=== PATIENT | male | born 1965 | race Caucasian/White ===

== ENCOUNTER 2023-06-01 07:02 | Day surgery (SDC) | payer OTHER, SELFPAY ==
--- NOTE | 2023-06-01 | PATH_ITS ---
[facility] Accession Number: [id number] No. of containers..02 Tissue . 01 Material submitted: . PART A: sigmoid colon - SIGMOID POLYP PART B: rectum - RECTAL POLYPS . 01 Diagnosis: A. Sigmoid Colon Polyp, Biopsy: Tubular adenoma. . B. Rectal Polyps, Biopsy: Hyperplastic polyp. MRV 06/07/2023 1541 Local . 01 Electronically signed: . July Turcios MD, Pathologist NPI- [id number] . 01 Gross description: . Part A: SIGMOID POLYP: Received in formalin is multiple fragment(s) of [place], soft tissue measuring 2.0 x 1.5 x 0.2 cm in aggregate submitted entirely in 1 cassette(s) Part B: RECTAL POLYPS: Received in formalin is multiple fragment(s) of [place], soft tissue measuring 1.5 x 1.0 x 0.2 cm in aggregate submitted entirely in 1 cassette(s) /AAY 06/02/2023 0621 Local . 01 Pathologist provided ICD-10: D12.5, D12.8 . 01 CPT . 887517, 963616 Specimen Comment: A courtesy copy of this report has been sent to [phone] Performed at: 01 [facility] [address] [place] [address], [place], [place] [id number] MD Adrian Waller MD Phone: [phone]
[2023-06-01 07:15] VITALS: BP 139/84; PULSE 84; RESP 16; TEMP 37.2; O2SAT 99; BMI 25.6
[2023-06-01] MEDS: LACTATED RINGERS 1,000 ML 150 ML IV (07:33)
--- NOTE | 2023-06-01 07:52 | PM.HP.1 ---
History of Present Illness History of Present Illness Date Patient Seen: 06/01/23 Time Patient Seen: 07:52 Chief complaint: Screening Colonoscopy Narrative: Getachew is a 58 year old man who had a colonoscopy about 5 years ago with findings of a small sigmoid polyp. He has a brother who of colon cancer at age 70. [facility] Social History household members: spouse Smoking Status: Never smoker alcohol intake: current Meds Home Medications and Allergies Home Medications Medication Instructions Recorded Confirmed Type sodium,potassium,mag sulfates 17.5 See Rx Instructions PO .COMPLEX 05/09/23 06/01/23 Rx gram-3.13 gram-1.6 gram oral soln #354 mL (Suprep Bowel Prep Kit) Allergies Allergy/AdvReac Type Severity Reaction Status Date / Time No Known Drug Allergies Allergy Verified 06/01/23 07:34 Exam Vital Signs (past 8 hours): - 06/01/23 07:15 Temperature 99 F Pulse Rate 84 Respiratory Rate 16 Blood Pressure 139/84 Pulse Oximetry 99 Oxygen Delivery Method Room Air Oxygen Delivery Method Room Air Const General: healthy appearing Resp Effort & Inspection: normal respiratory effort Assessment & Plan Assessment and plan (1) Family history of colon cancer: Status: Acute (2) History of colon polyps: Status: Acute Plan We reviewed the risks, benefits and rationale of colonoscopy and he would like to proceed.
--- NOTE | 2023-06-01 08:55 | PM.OP.COLON ---
Operative Date/Time/Diagnoses Date of procedure: 06/01/23 Time of procedure: 08:55 Pre-op diagnosis: Personal history of colon polyps and family history of colon cancer Post-op diagnosis: same Procedure & Clinicians Study performed: Colonoscopy Same procedure as scheduled: Yes Surgeon: Arash Gonzalez Procedure Notes Procedure in detail: Surgeon: Arash Gonzalez MD Anesthesia: April Joseph DO Procedure: The patient was brought to the endoscopy suite, placed in left lateral decubitus position. The patient was connected to monitoring devices. A time-out was performed. Sedation was administered. Once the patient was adequately sedated, a digital rectal exam was performed and was normal. The scope was then inserted and advanced to the cecum where the appendiceal orifice was identified and photographed. The scope was then slowly withdrawn over greater than 6 minutes. The mucosa was thoroughly inspected. There was a 3 mm polyp in the proximal sigmoid colon removed with a cold snare. There were 3 5 mm polyps in the mid rectum removed with cold snare and sent together. The scope was retroflexed in the rectum. No other abnormalities were found. The scope was straightened and removed. The patient was awakened and brought to recovery. Scope withdrawal time: 13 minutes Sedation time: 17 minutes EBL: 5 mL Findings: A 3 mm polyp in the sigmoid colon and 3 5 mm polyps in the rectum Post-procedure Disposition: PACU
[2023-06-01 08:57] VITALS: BP 101/54; PULSE 68; RESP 15; TEMP 37.2; O2SAT 97
[2023-06-01 09:02] VITALS: BP 111/70; PULSE 87; RESP 17; O2SAT 100
[2023-06-01 09:07] VITALS: BP 129/74; PULSE 69; RESP 18; TEMP 37.2; O2SAT 100
== END 2023-06-01 09:22 | disposition home or self-care (01) ==
PROVIDERS: Surgery; Referring Provider Surgery; Visit Provider Surgery
PROC: 0DJD8ZZ Inspection of Lower Intestinal Tract, Via Natural or Artificial Opening Endoscopic (ICD-10-PCS; CPT 45378; principal; 2023-06-01 08:15)
DX: Z12.11 Encounter for screening for malignant neoplasm of colon (principal); Z86.010 Personal history of colon polyps; Z80.0 Family history of malignant neoplasm of digestive organs; D12.5 Benign neoplasm of sigmoid colon; K62.1 Rectal polyp
CPT/HCPCS: 45385; J2704

== ENCOUNTER → 2024-10-03 16:51 | Outpatient (CLI) | payer OTHER, SELFPAY ==
--- NOTE | 2024-10-03 16:53 | DI.RAD.S_ITS ---
PROCEDURE: XR CHEST 2V INDICATIONS: cough TECHNIQUE: 2 views of the chest were acquired. COMPARISON: None. FINDINGS: Surgical changes and devices: None. Lungs and pleura: No acute consolidations. Blunting of the left posterior costophrenic sulcus, but no other evidence of pleural effusion or pneumothorax. Mediastinum: Mediastinal contours are normal. Heart size is normal. Bones and chest wall: No suspicious bony abnormalities. Soft tissues appear unremarkable. IMPRESSION: No airspace opacities. Blunting of the left costophrenic sulcus may be due to trace pleural fluid or chronic pleural scarring. Correlate clinically. Dictated by: Ivelisse Patel M.D. on 10/04/2024 at 13:34 Approved by: Ivelisse Patel M.D. on 10/04/2024 at 13:35
== END ==
PROVIDERS: PCP Family Medicine; Referring Provider Family Medicine; Visit Provider Family Medicine
DX: R05.9 Cough, unspecified (principal)
CPT/HCPCS: 71046

== ENCOUNTER → 2024-10-04 08:22 | Outpatient (CLI) | payer OTHER, SELFPAY ==
[2024-10-04 09:00] LABS: Add Manual Diff / Slide Review NO; Basophils Absolute Auto 100 /uL (0-100); Basophils Percent Auto 0.7 % (0-2); Eosinophils Absolute Auto 300 /uL (0-450); Eosinophils Percent Auto 3.8 % (2-4); Hematocrit 47.5 % (41-53); Hemoglobin 16.1 g/dL (13.5-17.5); Lymphocytes Absolute Auto 1900 /uL (1100-4500); Lymphocytes Percent Auto 25.2 % (25-40); Mean Corpuscular Hemoglobin 30.3 PG (26-34); Mean Corpuscular Volume 89.1 fL (80-100); Monocytes Absolute Auto 700 /uL (0-900); Monocytes Percent Auto 9.6 % (3-14); Neutrophils Absolute Auto 4600 /uL (1500-7000); Neutrophils Percent Auto 60.7 % (50-75); Platelet Count 256 X10^3/uL (150-400); Red Blood Cell Count 5.33 X10^6/uL (4.5-5.9); Red Cell Distribution Width 13.3 % (11.6-14.8); White Blood Cell Count 7.5 X10^3/uL (4.5-11.0)
[2024-10-04 09:20] LABS: HEMOLYSIS < 15 (0-50); Iron 137 ug/dL (49-181)
[2024-10-04 09:22] LABS: Alanine Aminotransferase 25 IU/L (<50); Albumin 4.3 g/dL (3.5-5.0); Albumin Globulin Ratio 1.6 (1.0-2.8); Alkaline Phosphatase 80 U/L (38-126); Aspartate Aminotransferase 27 IU/L (17-59); BUN Creatinine Ratio 16.5 (6-22); Bilirubin Total 1.3 mg/dL (0.2-1.3); Blood Urea Nitrogen 15 mg/dL (9-20); Calcium 9.2 mg/dL (8.4-10.2); Carbon Dioxide 27 mmol/L (22-32); Chloride 105 mmol/L (98-107); Cholesterol 205 mg/dL (140-199); Estimated Glomerular Filt Rate > 60 mL/min (>60); Globulin 2.7 g/dL (1.7-4.1); Glucose 94 mg/dL (80-110); HDL Cholesterol 42 mg/dL (40-60); HEMOLYSIS < 15 (0-50); Magnesium 2.2 mg/dL (1.6-2.3); Potassium 4.4 mmol/L (3.4-5.1); Sodium 139 mmol/L (137-145); Triglycerides 149 mg/dL (35-150)
[2024-10-04 09:23] LABS: LDL Cholesterol Calculated 133 mg/dL (<100)
[2024-10-04 09:32] LABS: Percent Iron Saturation 50 % (20-50); Total Iron Binding Capacity 274 ug/dL (261-462); Transferrin 257 mg/dL (206-381)
[2024-10-04 09:38] LABS: Vitamin D 25 Hydroxy (D3) 45.2 ng/mL (30.0-100.0)
[2024-10-04 09:59] LABS: Ferritin 125 ng/mL (18-464)
[2024-10-05 08:39] LABS: PSA, Total 0.5 ng/mL (0.0-4.0)
== END ==
PROVIDERS: PCP Family Medicine; Referring Provider Family Medicine; Visit Provider Family Medicine
DX: Z12.5 Encounter for screening for malignant neoplasm of prostate (principal); Z13.6 Encounter for screening for cardiovascular disorders; E66.3 Overweight; R25.2 Cramp and spasm; Z86.39 Personal history of other endocrine, nutritional and metabolic disease
CPT/HCPCS: 36415; 80053; 80061; 82306; 82728; 83540; 83550; 83735; 84153; 84154; 85025